=== PATIENT | female | born 1995 | race Hispanic/Latino ===

== ENCOUNTER 2024-08-28 13:59 | Emergency (ER) | payer SELFPAY ==
[~2024-08-28] VITALS: Ht 162.6 cm; Wt 99.8 kg
[2024-08-28] MEDS: Solu-medROL 125MG VIAL IM ONE (15:36)
[2024-08-28] MEDS: FAMOTIDINE 20MG TAB PO ONE (15:36)
[2024-08-28] MEDS ORDERED: PRED20TA3 PO (16:09)
[2024-08-28] MEDS ORDERED: LORA10TA7 PO (16:09)
--- NOTE | 2024-08-28 16:10 | ERN ---
General Chief Complaint: Allergic Reaction Stated Complaint: ALLERGIC REACTION Time Seen by MD: 14:49 Time Seen by Midlevel: 14:49 Source: patient History of Present Illness Initial Comments 29-year-old female who presents to the emergency department due to an allergic reaction. The patient states she ate a palliative chicken in [place], and within 20 minutes initiated feeling hot, PERES started noticing a rash to her entire body, and itchy sensation to the throat. Patient took a tab of Benadryl prior to arrival. Denies any known allergies. Denies significant past medical history. Allergies: Coded Allergies: strawberry (Unverified Allergy, Unknown, 08/28/24) Home Meds Active Scripts Loratadine (Loratadine) 10 Mg Tablet, 10 MG PO DAILY for 7 Days, #7 TAB Prov:JOSÉ MANUEL WADDELL 08/28/24 Prednisone (Prednisone) 20 Mg Tablet, 1 TAB PO DAILY for 5 Days, #5 TAB 0 Refills Prov:JOSÉ MANUEL WADDELL 08/28/24 Past Medical History Past Medical History: No Pertinent History Past Surgical History: Other Female( History) LMP: Aug 03, 2024 ROS Dictation Constitutional: Negative for fever,chills, and weight loss Eyes: Negative for injury, pain,redness, and discharge ENT: Negative for injury,pain or swelling Cardiovascular: Negative for chest pain, palpitations, and edema Respiratory: Negative for shortness of breath, cough, and wheezing, Abdomen/GI: Negative for abdominal pain, nausea, vomiting, diarrhea, and constipation Back: Negative for injury and pain : Negative for painful urination, bleeding or discharge MS/Extremity: Negative for injury and deformity Skin: Positive for rash Negative for discoloration Neuro: Negative for headache, weakness, numbness, tingling, and seizure Psych: Negative for suicide ideation, homicidal ideation, and hallucinations Physical Exam Physical Exam Dictation General: awake, alert, no acute distress Head/Face: Normocephalic, atraumatic Eyes: PERRL, EOMI, normal conjunctiva ENT: oral cavity clear, oral mucosa moist Neck: Supple, normal range of motion Cardiovascular: RRR, normal S1/S2 Respiratory: CTAB, no respiratory distress, no rales or wheezes Skin: Generalized macular papular erythematous blanching rash consistent with hives. Warm, dry, normal turgor MS/Extremity: Pulses equal, no cyanosis, neurovascular intact, FROM Neuro: COAx4, GCS 15, strength 5/5, CN 2-12 intact, normal cerebellar exam, normal gait, Psych: Normal behavior, mood, and affect normal MDM MDM: Differential diagnosis: Allergic reaction, hives, rash Rationale: 29-year-old female who presents to the emergency department due to an allergic reaction. The patient states she ate a palliative chicken in [place], and within 20 minutes initiated feeling hot, PERES started noticing a rash to her entire body, and itchy sensation to the throat. Patient took a tab of Benadryl prior to arrival. Denies any known allergies. Denies significant past medical history. Per physical examination patient is in no acute distress, nonlabored breathing, generalized maculopapular erythematous blanching rash consistent with hives. The patient was administered methylprednisolone famotidine in the ED. On re- examination patient is a rash had improved. Patient was prescribed prednisone and loratadine for outpatient treatment. Patient was educated on findings and diagnosis. Advised to follow up with PCP. Return to the emergency department for any worsening symptoms. Patient verbalized understanding. Patient stable for discharge. There are no social concerns with this patient. I independently interpreted the test that were performed, results were reviewed by me and considered findings on radiology if ordered. Medical management and examination interpretation discussions were had by me with other qualified healthcare professionals as indicated for the patient's care. ED Course Orders Procedure Category Date Status Time Famotidine 20mg Tab PHA 08/28/24 Complete (Pepcid 20mg Tab) 15:30 Methylprednisolone PHA 08/28/24 Complete Succ 125mg (Solu-Medr 15:30 Current Medications Medications (Trade) Dose Ordered Sig/Sang Route PRN Reason Start Time Stop Time Status Last Admin Dose Admin Famotidine (Pepcid 20mg Tab) 20 mg ONCE ONCE PO 08/28/24 15:30 08/28/24 15:31 DC 08/28/24 15:36 Methylprednisolone Sodium Succinate (Solu-medROL 125MG) 125 mg ONCE ONCE IM 08/28/24 15:30 08/28/24 15:31 DC 08/28/24 15:36 Vital Signs Date Time Temp Pulse Resp B/P (MAP) Pulse Ox O2 Delivery O2 Flow Rate FiO2 08/28/24 16:22 98.1 60 17 142/84 100 Room Air* 0 21 08/28/24 14:59 98.4 76 20 116/79 99 Room Air 0 DX & DISP Disposition: Discharge Departure Impression: Primary Impression: Allergic reaction Additional Impression: Hives Condition: Stable Scripts Loratadine (Loratadine) 10 Mg Tablet 10 MG PO DAILY for 7 Days, #7 TAB Prov: JOSÉ MANUEL WADDELL 08/28/24 Prednisone (Prednisone) 20 Mg Tablet 1 TAB PO DAILY for 5 Days, #5 TAB 0 Refills Prov: JOSÉ MANUEL WADDELL 08/28/24 Additional Instructions: Discharge home. Rest. Follow up with primary care DrJeri in 24 hours. Return to the ER for any acute changes or worsening symptoms. If any medications were prescribed take as directed. Okay to continue home medications unless otherwise discussed during your visit in the emergency room today. Patient was also advised to follow-up with primary care physician in 1 to 2 days for continued monitoring. Referrals: NONE (PCP) I performed the substantive portion of the visit. I have reviewed and personally made and approve the management plan that is documented in the notes by myself or the PEDRO. I acknowledge full responsibility for the patient's management plan. JOSÉ MANUEL WADDELL Aug 28, 2024 16:10
[2024-08-28 16:22] VITALS: BP 142/84; PULSE 60; RESP 17; TEMP 98.1; O2SAT 100
== END 2024-08-28 16:23 | disposition home or self-care (01) ==
LOC: EDH 13:59
DX: T78.40XA Allergy, unspecified, initial encounter (principal); L50.9 Urticaria, unspecified; Z79.52 Long term (current) use of systemic steroids; X58.XXXA Exposure to other specified factors, initial encounter
CPT/HCPCS: 99283; 96372; J2919